=== PATIENT | male | born 1930 | race Caucasian/White ===

== ENCOUNTER 2018-05-17 07:38 | Emergency (ER) | payer MEDICARE, BC ==
[2018-05-17 13:22] LABS: Anisocytosis Slight; HCT 43.1 % (39.0-53.0); MCH 32.3 pg (25.0-35.0); MCHC 32.5 g/dL (31.0-37.0); MCV 99.4 fL (80.0-100.0); Macrocytosis Moderate; Mean Platelet Volume 10.2; RBC 4.34 m/uL (4.30-5.90); RDW 19.9 % (11.5-15.5); WBC 7.2 k/uL (3.8-10.6)
[2018-05-17 13:25] LABS: Platelet Count 88 k/uL (150-450)
[2018-05-17 13:27] LABS: Large Platelets Present; Lymphocytes # (M) 0.65 k/uL (1.0-4.8); Monocytes # (M) 2.74 k/uL (0-1.0); Neutrophils # (M) 3.82 k/uL (1.3-7.7); Neutrophils % (M) 53 %; Nucleated Red Blood Cells 0 /100 WBC (0-0); Poikilocytosis (M) Present; Spherocytes Present; Total Cells Counted 100
[2018-05-17 13:30] LABS: INR 1.6 (<1.2); Prothrombin Time 14.6 sec (9.0-12.0)
== END 2018-05-17 10:01 | disposition home or self-care (01) ==
LOC: EC 07:38
DX: I10 Essential (primary) hypertension (principal); R04.0 Epistaxis; Z88.5 Allergy status to narcotic agent
CPT/HCPCS: 36415; 85025; 85610; 85730; 96374; 96375; 99284

== ENCOUNTER → 2019-04-05 | Outpatient (CLI) | payer MEDICARE, BC ==
[2019-04-05 14:37] LABS: INR 1.3 (<1.2); Prothrombin Time 13.7 sec (9.0-12.0)
== END | disposition home or self-care (01) ==
LOC: LABWHC1 13:34
PROVIDERS: ATTEND Dentist Oral and Maxillofacial Surgery
DX: D68.9 Coagulation defect, unspecified (principal)
CPT/HCPCS: 36415; 85610

== ENCOUNTER → 2019-04-06 | Outpatient (CLI) | payer MEDICARE, BC ==
[2019-04-06 07:15] LABS: INR 1.3 (<1.2); Prothrombin Time 13.1 sec (9.0-12.0)
== END | disposition home or self-care (01) ==
LOC: LABWHC1 06:41
PROVIDERS: ATTEND Dentist Oral and Maxillofacial Surgery
DX: Z51.81 Encounter for therapeutic drug level monitoring (principal); Z79.01 Long term (current) use of anticoagulants
CPT/HCPCS: 36415; 85610

== ENCOUNTER 2019-06-03 09:11 | Emergency (ER) | payer MEDICARE, BC ==
[2019-06-03 09:27] VITALS: RESP 18; TEMP 97.9
[2019-06-03] MEDS ORDERED: ACET/COD 300 MG/30 MG STARTER PACK 6 TAB BTL PO STA (09:31)
--- NOTE | 2019-06-03 09:31 | ED ---
General Adult HPI - General Stated complaint: jaw pain Time Seen by Provider: 06/03/19 09:19 Source: patient, RN notes reviewed Mode of arrival: wheelchair Limitations: physical limitation - History of Present Illness Initial comments: This an 89-year-old male presents emergency Department chief complaint of right upper dental pain. Patient states that he's had this for last 2 mornings it did improve yesterday. Patient states that a cough for about 6 AM with sharp stabbing pain underneath his right upper molar. Patient states that it comes and goes. Patient was given 15 mg of Toradol by EMS which has helped his discomfort. Patient has no complaints of headache, dizziness, neck pain, chest pain, shortness breath. Patient does take medications for A. fib blood press ure. Patient denies any abnormal bleeding denies any fevers or chills. Patient also has noticed some rash on his face. - Related Data Home Medications Medication Instructions Recorded Confirmed Dorzolamide 2% [Trusopt 2%] 1 drops BOTH EYES BID 11/13/17 11/13/17 Warfarin [Coumadin] 2.5 mg PO DAILY 11/13/17 11/13/17 predniSONE 7.5 mg PO DAILY 11/13/17 11/13/17 Previous Rx's Medication Instructions Recorded Penicillin V Potassium [Pen Vee K] 500 mg PO QID #40 tablet 06/03/19 valACYclovir HCL [Valtrex] 1,000 mg PO Q8HR #30 tab 06/03/19 Allergies Allergy/AdvReac Type Severity Reaction Status Date / Time meperidine HCl [From Demerol] AdvReac Unknown Verified 06/03/19 09:27 Review of Systems ROS Statement: Those systems with pertinent positive or pertinent negative responses have been documented in the HPI. ROS Other: All systems not noted in ROS Statement are negative. Past Medical History Past Medical History: Atrial Fibrillation History of Any Multi-Drug Resistant Organisms: None Reported Past Surgical History: Back Surgery, Tonsillectomy Additional Past Surgical History / Comment(s): thymus removed Past Psychological History: No Psychological Hx Reported Smoking Status: Never smoker Past Alcohol Use History: None Reported Past Drug Use History: None Reported General Exam Limitations: physical limitation General appearance: alert, in no apparent distress Head exam: Present: atraumatic, normocephalic, normal inspection Eye exam: Present: normal appearance, PERRL, EOMI. Absent: scleral icterus, conjunctival injection, periorbital swelling ENT exam: Present: mucous membranes moist, TM's normal bilaterally. Absent: normal exam, normal oropharynx (There are noted canker sores in the right upper gumline, swelling of the upper dentition with tenderness, and mild superficial tenderness the right maxillary right TMJ region with vesicular rash noted) Neck exam: Present: normal inspection, full ROM. Absent: tenderness, meningismus, lymphadenopathy Respiratory exam: Present: normal lung sounds bilaterally. Absent: respiratory distress, wheezes, rales, rhonchi, stridor Cardiovascular Exam: Present: irregular rhythm, normal heart sounds. Absent: regular rate, normal rhythm, systolic murmur, diastolic murmur, rubs, gallop, clicks Neurological exam: Present: alert, oriented X3, CN II-XII intact Skin exam: Present: warm, dry, rash (Erythematous vesicular rash right cheek) Course Vital Signs 06/03/19 06/03/19 09:21 09:56 Temperature 97.9 F Pulse Rate 90 83 Respiratory 18 18 Rate Blood Pressure 189/100 176/87 O2 Sat by Pulse 97 97 Oximetry Medical Decision Making - Medical Decision Making 89-year-old male present emergency department for right upper dental pain, facial rash. This is underlying concerns for dental infection with herpes zoster. Patient will be given Valtrex, Pen-Vee K to go home with. Patient will follow-up with dentist and PCP tomorrow and return for any worsening symptoms. Patient is neurologically intact afebrile vitals are stable. Disposition Clinical Impression: Toothache, Herpes zoster Disposition: HOME SELF-CARE Condition: Stable Instructions (If sedation given, give patient instructions): Toothache (ED) Additional Instructions: Please return to the Emergency Department if symptoms worsen or any other concerns. Prescriptions: Penicillin V Potassium [Pen Vee K] 500 mg PO QID #40 tablet valACYclovir HCL [Valtrex] 1,000 mg PO Q8HR #30 tab Is patient prescribed a controlled substance at d/c from ED?: No Referrals: Corrina Castro DO [Primary Care Provider] - 1-2 days Time of Disposition: 10:25
[2019-06-03] MEDS ORDERED: valACYclovir HCL 1,000 MG TABLET PO STA (09:32)
[2019-06-03] MEDS ORDERED: PENICILLIN V POTASSIUM 250 MG TAB PO STA (09:32)
[2019-06-03 10:59] VITALS: BP 142/63; PULSE 82
== END 2019-06-03 10:57 | disposition home or self-care (01) ==
LOC: EC 09:11
DX: K08.89 Other specified disorders of teeth and supporting structures (principal); B02.9 Zoster without complications; I48.91 Unspecified atrial fibrillation; Z79.51 Long term (current) use of inhaled steroids; Z79.01 Long term (current) use of anticoagulants; Z79.899 Other long term (current) drug therapy; Z88.5 Allergy status to narcotic agent
CPT/HCPCS: 99284

== ENCOUNTER 2019-06-19 17:32 | Inpatient (IN) | payer MEDICARE, BC ==
--- NOTE | 2019-06-19 18:50 | ED ---
Extremity Problem HPI - General Source: patient, EMS Mode of arrival: EMS Limitations: no limitations <Lanette Luna - Last Filed: 06/20/19 02:02> <Matt Ramsay - Last Filed: 06/23/19 06:42> - General Chief complaint: Extremity Problem,Nontraumatic Stated complaint: Leg swelling Time Seen by Provider: 06/19/19 18:19 - History of Present Illness Initial comments: 89-year-old male patient presents to the emergency department today for evaluation of swelling and redness of the left lower leg. Patient states he is getting physical therapy today when the therapist noticed this area. She was concerned for infection so told him he should present to the emergency department for further evaluation. Patient states the area is painful. He denies any fever or chills. Denies any history of similar type symptoms. He denies any injury to the leg. 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 States he is receiving physical therapy due to medical debility. Patient denies any recent rash, shortness breath, chest pain, palpitations, abdominal pain, nausea, vomiting, diarrhea, constipation, back pain, numbness, tingling, dizziness, weakness, hematuria, dysuria, urinary ur gency, urinary frequency, headache, visual changes, or any other complaints. (Lanette Luna) - Related Data Home Medications Medication Instructions Recorded Confirmed predniSONE 5 mg PO DAILY 11/13/17 06/19/19 Amoxicillin/Potassium Clav 1 tab PO Q12HR 06/19/19 06/19/19 [Augmentin 875-125 Tablet] Dorzolamide 2% [Trusopt 2%] 1 drops BOTH EYES BID 06/19/19 06/19/19 Netarsudil Mesylate [Rhopressa] 1 drop LEFT EYE HS 06/19/19 06/19/19 Warfarin Sodium 5 mg PO DAILY 06/19/19 06/19/19 Previous Rx's Medication Instructions Recorded Cephalexin [Keflex] 500 mg PO Q8HR #30 cap 06/22/19 Allergies Allergy/AdvReac Type Severity Reaction Status Date / Time meperidine HCl [From Demerol] AdvReac Unknown Verified 06/19/19 18:02 Review of Systems ROS Other: All systems not noted in ROS Statement are negative. <Lanette Luna - Last Filed: 06/20/19 02:02> ROS Other: All systems not noted in ROS Statement are negative. <Matt Ramsay - Last Filed: 06/23/19 06:42> ROS Statement: Those systems with pertinent positive or pertinent negative responses have been documented in the HPI. Past Medical History Past Medical History: Atrial Fibrillation History of Any Multi-Drug Resistant Organisms: None Reported Past Surgical History: Back Surgery, Tonsillectomy Additional Past Surgical History / Comment(s): thymus removed Past Psychological History: No Psychological Hx Reported Smoking Status: Never smoker Past Alcohol Use History: None Reported Past Drug Use History: None Reported <Lanette Luna - Last Filed: 06/20/19 02:02> General Exam Limitations: no limitations General appearance: alert, in no apparent distress, other (This is a well- developed, well-nourished elderly male patient in no acute distress. Vital sig ns upon presentation are temperature 98.7F, pulse 88, respirations 16, blood pressure 174/76, pulse ox 98% on room air.) Eye exam: Present: normal appearance, PERRL, EOMI. Absent: scleral icterus, conjunctival injection, periorbital swelling ENT exam: Present: normal exam, normal oropharynx, mucous membranes moist Respiratory exam: Present: normal lung sounds bilaterally. Absent: respiratory distress, wheezes, rales, rhonchi, stridor Cardiovascular Exam: Present: regular rate, normal rhythm, normal heart sounds. Absent: systolic murmur, diastolic murmur, rubs, gallop, clicks GI/Abdominal exam: Present: soft, normal bowel sounds. Absent: distended, tenderness, guarding, rebound, rigid Extremities exam: Present: full ROM, tenderness (Tenderness and erythema over the right anterolateral medial lower leg overlying some large varicose veins. There is general soft tissue swelling over the lower leg. Skin is otherwise pink, warm, dry. Cap refills less than 3 seconds. Pedal and posttibial pulses are 2+ and equal bilaterally.), normal capillary refill. Absent: normal inspection, pedal edema, joint swelling, calf tenderness Neurological exam: Present: alert, oriented X3, CN II-XII intact Psychiatric exam: Present: normal affect, normal mood Skin exam: Present: warm, dry, intact, normal color. Absent: rash <Lanette Luna - Last Filed: 06/20/19 02:02> Course Vital Signs 06/19/19 06/19/19 06/19/19 17:36 19:32 23:39 Temperature 98.7 F 98.5 F Pulse Rate 88 80 70 Respiratory 16 18 18 Rate Blood Pressure 174/76 136/76 161/83 O2 Sat by Pulse 98 97 98 Oximetry 06/20/19 01:54 Temperature 98.3 F Pulse Rate 78 Respiratory 18 Rate Blood Pressure 160/80 O2 Sat by Pulse 98 Oximetry Medical Decision Making - Lab Data Result diagrams: 06/19/19 19:11 06/19/19 19:11 - Radiology Data Radiology results: report reviewed, image reviewed <Lanette Luna - Last Filed: 06/20/19 02:02> - Lab Data Result diagrams: 06/22/19 08:29 06/22/19 08:29 <Matt Ramsay - Last Filed: 06/23/19 06:42> - Medical Decision Making 89-year-old male patient of Dr. Castro presents to the emergency department today for evaluation of erythema, swelling and pain to the left lower leg. Physical examination did reveal large varicose veins over the left anteromedial lower leg. There is overlying erythema and swelling that extended down into the calf. Labs reviewed and did reveal elevated white blood cell count at 16,000. I did perform ultrasound of the leg that showed evidence of superficial thrombosis of the left greater saphenous vein. Patient is taking Augmentin for dental infection. There is concern for cellulitis which would be failed outpatient treatment since he has been on the Augmentin. We'll also do Lovenox for the thrombus due to proximity to the deep venous system. I did discuss findings and results with the patient. He agrees with this plan. (Lanette Luna) I saw this patient in conjunction with the physician assistant education director. I performed independent history and physical exam. Agree with case management. (Matt Ramsay) - Lab Data Lab Results 06/19/19 06/19/19 06/19/19 Range/Units 19:11 19:11 19:11 WBC 16.7 H (3.8-10.6) k/uL RBC 4.15 L (4.30-5.90) m/uL Hgb 13.2 (13.0-17.5) gm/dL Hct 41.2 (39.0-53.0) % MCV 99.3 (80.0-100.0) fL MCH 31.7 (25.0-35.0) pg MCHC 32.0 (31.0-37.0) g/dL RDW 20.0 H (11.5-15.5) % Plt Count 124 L (150-450) k/uL Neutrophils % (Manual) 70 % Lymphocytes % (Manual) 4 % Monocytes % (Manual) 26 % Neutrophils # (Manual) 11.69 H (1.3-7.7) k/uL Lymphocytes # (Manual) 0.67 L (1.0-4.8) k/uL Monocytes # (Manual) 4.34 H (0-1.0) k/uL Nucleated RBCs 0 (0-0) /100 WBC Manual Slide Review Performed Anisocytosis Slight Macrocytosis Moderate PT (9.0-12.0) sec INR (<1.2) APTT (22.0-30.0) sec Sodium 134 L (137-145) mmol/L Potassium 4.0 (3.5-5.1) mmol/L Chloride 101 (98-107) mmol/L Carbon Dioxide 25 (22-30) mmol/L Anion Gap 8 mmol/L BUN 21 H (9-20) mg/dL Creatinine 0.52 L (0.66-1.25) mg/dL Est GFR (CKD-EPI)AfAm >90 (>60 ml/min/1.73 sqM) Est GFR (CKD-EPI)NonAf >90 (>60 ml/min/1.73 sqM) Glucose 117 H (74-99) mg/dL Plasma Lactic Acid Daron 1.3 (0.7-2.0) mmol/L Calcium 8.5 (8.4-10.2) mg/dL Total Bilirubin 0.7 (0.2-1.3) mg/dL AST 32 (17-59) U/L ALT 24 (21-72) U/L Alkaline Phosphatase 97 (38-126) U/L Total Protein 6.7 (6.3-8.2) g/dL Albumin 3.4 L (3.5-5.0) g/dL 06/20/19 Range/Units 01:42 WBC (3.8-10.6) k/uL RBC (4.30-5.90) m/uL Hgb (13.0-17.5) gm/dL Hct (39.0-53.0) % MCV (80.0-100.0) fL MCH (25.0-35.0) pg MCHC (31.0-37.0) g/dL RDW (11.5-15.5) % Plt Count (150-450) k/uL Neutrophils % (Manual) % Lymphocytes % (Manual) % Monocytes % (Manual) % Neutrophils # (Manual) (1.3-7.7) k/uL Lymphocytes # (Manual) (1.0-4.8) k/uL Monocytes # (Manual) (0-1.0) k/uL Nucleated RBCs (0-0) /100 WBC Manual Slide Review Anisocytosis Macrocytosis PT 12.7 H (9.0-12.0) sec INR 1.2 H (<1.2) APTT 23.3 (22.0-30.0) sec Sodium (137-145) mmol/L Potassium (3.5-5.1) mmol/L Chloride (98-107) mmol/L Carbon Dioxide (22-30) mmol/L Anion Gap mmol/L BUN (9-20) mg/dL Creatinine (0.66-1.25) mg/dL Est GFR (CKD-EPI)AfAm (>60 ml/min/1.73 sqM) Est GFR (CKD-EPI)NonAf (>60 ml/min/1.73 sqM) Glucose (74-99) mg/dL Plasma Lactic Acid Daron (0.7-2.0) mmol/L Calcium (8.4-10.2) mg/dL Total Bilirubin (0.2-1.3) mg/dL AST (17-59) U/L ALT (21-72) U/L Alkaline Phosphatase (38-126) U/L Total Protein (6.3-8.2) g/dL Albumin (3.5-5.0) g/dL - Radiology Data Venous Doppler duplex of the left lower external he was obtained. Report was reviewed in its entirety. Impression by Dr. Medel shows evidence of superficial thrombosis of the greater saphenous vein. Noted evidence of deep venous tendinosis in the visualized lower extremity veins. Ultrasound of the left lower trauma he was obtained. Report was reviewed in its entirety. Impression by Dr. Medel shows limited images in the area of concern in the left lower leg demonstrate heterogenous hypoechoic structures are some areas of minimal vascularly. Differential considerations includes thrombosed vessels with mass not excluded. (Lanette Luna) Disposition Decision to Admit Reason: Admit from EC Decision Date: 06/20/19 Decision Time: 00:53 <Lanette Luna - Last Filed: 06/20/19 02:02> <Matt Ramsay - Last Filed: 06/23/19 06:42> Clinical Impression: Left leg cellulitis, Superficial thrombosis of left lower extremity Disposition: ADMITTED IP TO THIS [facility] Condition: Serious
[2019-06-19 19:37] LABS: ALT 24 U/L (21-72); AST 32 U/L (17-59); African American GFR (CKD) >90 (>60 ml/min/1.73 sqM); Albumin 3.4 g/dL (3.5-5.0); Alkaline Phosphatase 97 U/L (38-126); Anion Gap 8 mmol/L; Blood Urea Nitrogen 21 mg/dL (9-20); Calcium 8.5 mg/dL (8.4-10.2); Carbon Dioxide 25 mmol/L (22-30); Chloride 101 mmol/L (98-107); Glucose 117 mg/dL (74-99); Sodium 134 mmol/L (137-145); Total Bilirubin 0.7 mg/dL (0.2-1.3); Total Protein 6.7 g/dL (6.3-8.2)
[2019-06-19 19:48] LABS: Anisocytosis Slight; HCT 41.2 % (39.0-53.0); HGB 13.2 gm/dL (13.0-17.5); MCH 31.7 pg (25.0-35.0); MCV 99.3 fL (80.0-100.0); Macrocytosis Moderate; Platelet Count 124 k/uL (150-450); RBC 4.15 m/uL (4.30-5.90); WBC 16.7 k/uL (3.8-10.6)
[2019-06-19 20:17] LABS: Lymphocytes # (M) 0.67 k/uL (1.0-4.8); Monocytes # (M) 4.34 k/uL (0-1.0); Neutrophils % (M) 70 %; Nucleated Red Blood Cells 0 /100 WBC (0-0); Total Cells Counted 100
--- NOTE | 2019-06-19 22:54 | US ---
EXAM: US Duplex Left Lower Extremity Veins CLINICAL HISTORY: ITS.REASON US Reason: Pain TECHNIQUE: Real-time duplex ultrasound scan of the left lower extremity veins integrating B-mode two-dimensional vascular structure, Doppler spectral analysis, color flow Doppler imaging and compression. COMPARISON: No relevant prior studies available. FINDINGS: Deep veins: No DVT in the visualized left lower extremity veins. Superficial veins: There is evidence of superficial thrombosis in the greater saphenous vein. Soft tissues: No acute findings. IMPRESSION: 1. There is evidence of superficial thrombosis in the greater saphenous vein. 2. No evidence of deep venous thrombosis in the visualized lower extremity veins. <MYCVCSECTION> Critical Value Communications 06/19/19 23:12 Verify Receipt Verified receipt with SALOMÓN BRITO in the ER for Dr. SWANSON on 06/19 23:12 (-04:00)
--- NOTE | 2019-06-19 23:13 | US ---
EXAM: US Left Lower Extremity CLINICAL HISTORY: ITS.REASON US Reason: Redness, swelling TECHNIQUE: Real-time ultrasound scan of the left lower extremity with image documentation. COMPARISON: No relevant prior studies available. FINDINGS: Limited images in the area of concern in the left lower leg demonstrate heterogeneous hypoechoic structures with some areas of minimal vascularity. IMPRESSION: Limited images in the area of concern in the left lower leg demonstrate heterogeneous hypoechoic structures with some areas of minimal vascularity. Differential considerations include thrombosed vessels with mass not excluded.
[2019-06-20] MEDS ORDERED: NALOXONE 0.4 MG/ML 1 ML VIAL IV PRN (00:49)
[2019-06-20] MEDS ORDERED: CLINDAMYCIN 600 MG in DEXTROSE 5% IN WATER 50 ML IVPB STA ×2 (00:49)
[2019-06-20] MEDS ORDERED: ENOXAPARIN 60 MG/0.6 ML SYRINGE SQ STA (00:52)
[2019-06-20 01:59] LABS: INR 1.2 (<1.2); Partial Thromboplastin Time 23.3 sec (22.0-30.0); Prothrombin Time 12.7 sec (9.0-12.0)
[2019-06-20] MEDS: CLINDAMYCIN 600 MG in DEXTROSE 5% IN WATER 50 ML IVPB SCH ×4 (09:01→16:28)
[2019-06-20] MEDS: DORZOLAMIDE HCL 2% DROPS 10 ML BTL BOTH EYES SCH ×2 (09:01→20:26)
--- NOTE | 2019-06-20 13:47 | P.HPIM ---
History of Present Illness H&P Date: 06/20/19 Chief Complaint: Leg pain Juan Miguel Rushing is an 89 yo M with PMH significant for atrial fibrillation on coumadin, glaucoma, osteopenia, deconditioning. He was seen yesterday by home visiting PT and complained at that time of superficial nodular swelling and tenderness along his LLE. He was then recommended to present to the ED. He has a history of superficial phlebitis and has required antibiotic treatment for this in the past. He states the bumps on his legs enlarged and began hurting over the past two days. He denies any fevers, chills, chest pain, cough, or redness exte nding up his leg. He denies any open sores or drainage. Pt states he has remained compliant with his coumadin. He has no known history of vascular disease and is a nonsmoker. In the ED, vitals stable, WBC 16.7, venous ultrasound with superficial thrombosis of L saphenous vein. Superficial ultrasound of leg nodules showed them to be hypoechoic with minimal vascularity. Review of Systems All systems: negative Constitutional: Reports malaise, Denies chills, Denies fever Eyes: denies blurred vision, denies pain Ears, nose, mouth and throat: Denies headache, Denies sore throat Cardiovascular: Denies chest pain, Denies shortness of breath Respiratory: Denies cough Gastrointestinal: Denies abdominal pain, Denies diarrhea, Denies nausea, Denies vomiting Musculoskeletal: Reports as per HPI, Reports gait dysfunction, Denies myalgias Integumentary: Denies pruritus, Denies rash Neurological: Denies numbness, Denies weakness Psychiatric: Denies anxiety, Denies depression Endocrine: Denies fatigue, Denies weight change Past Medical History Past Medical History: Atrial Fibrillation Additional Past Medical History / Comment(s): Glaucoma History of Any Multi-Drug Resistant Organisms: None Reported Past Surgical History: Back Surgery, Tonsillectomy Additional Past Surgical History / Comment(s): thymus removed Past Anesthesia/Blood Transfusion Reactions: No Reported Reaction Past Psychological History: No Psychological Hx Reported Smoking Status: Never smoker Past Alcohol Use History: None Reported Past Drug Use History: None Reported - Past Family History Father Family Medical History: No Reported History Mother Family Medical History: No Reported History Medications and Allergies Home Medications Medication Instructions Recorded Confirmed Type RX: predniSONE 5 mg PO DAILY 11/13/17 06/19/19 History Amoxicillin/Potassium Clav 1 tab PO Q12HR 06/19/19 06/19/19 History [Augmentin 875-125 Tablet] Dorzolamide 2% [Trusopt 2%] 1 drops BOTH EYES BID 06/19/19 06/19/19 History Netarsudil Mesylate [Rhopressa] 1 drop LEFT EYE HS 06/19/19 06/19/19 History RX: Warfarin Sodium 5 mg PO DAILY 06/19/19 06/19/19 History Allergies Allergy/AdvReac Type Severity Reaction Status Date / Time meperidine HCl [From Demerol] AdvReac Unknown Verified 06/19/19 18:02 Physical Exam Vitals: Vital Signs Temp Pulse Pulse Resp BP BP Pulse Ox 06/20/19 04:30 98.3 F 80 20 133/70 98 06/20/19 04:00 80 06/20/19 02:45 98.1 F 76 20 152/76 98 06/20/19 01:54 98.3 F 78 18 160/80 98 06/19/19 23:39 98.5 F 70 18 161/83 98 06/19/19 19:32 80 18 136/76 97 06/19/19 17:36 98.7 F 88 16 174/76 98 Intake and Output 06/19/19 06/20/19 06/20/19 22:59 06:59 14:59 Intake Total 200 240 Output Total 1 Balance 199 240 Intake: Oral 200 240 Output: Stool 1 Other: # Voids 3 Weight 65.771 kg 60.101 kg Constitutional: well developed, well nourished, NAD. Vitals reviewed HEENT: normocephalic. TMs clear. PERRLA. Mucus membranes moist Neck: supple, no thyromegaly or JVD CV: Irregularly irregular, systolic murmur. Pulses 1+ Lungs: normal inspiratory effort, clear throughout Abd: soft, nontender, no organomegaly Lymph: no cervical or inguinal LAD Ext: LLE with 5 discreet, 1-2 cm diameter superficial tender nodules. There is minimal erythema around these. Distal bilateral LE with extensive hemosiderin deposition Neuro: AAO x3 Results CBC & Chem 7: 06/19/19 19:11 06/19/19 19:11 Labs: Abnormal Lab Results - Last 24 Hours (Table) 06/19/19 06/19/19 06/20/19 Range/Units 19:11 19:11 01:42 WBC 16.7 H (3.8-10.6) k/uL RBC 4.15 L (4.30-5.90) m/uL RDW 20.0 H (11.5-15.5) % Plt Count 124 L (150-450) k/uL Neutrophils # (Manual) 11.69 H (1.3-7.7) k/uL Lymphocytes # (Manual) 0.67 L (1.0-4.8) k/uL Monocytes # (Manual) 4.34 H (0-1.0) k/uL PT 12.7 H (9.0-12.0) sec INR 1.2 H (<1.2) Sodium 134 L (137-145) mmol/L BUN 21 H (9-20) mg/dL Creatinine 0.52 L (0.66-1.25) mg/dL Glucose 117 H (74-99) mg/dL Albumin 3.4 L (3.5-5.0) g/dL Thrombosis Risk Factor Assmnt - Choose All That Apply Other Risk Factors: Yes Each Risk Factor Represents 3 Points: Age 75 years or older Thrombosis Risk Factor Assessment Total Risk Factor Score: 3 Thrombosis Risk Factor Assessment Level: Moderate Risk Assessment and Plan (1) Phlebitis Current Visit: Yes Status: Acute Code(s): I80.9 - PHLEBITIS AND THROMBOPHLEBITIS OF UNSPECIFIED SITE SNOMED Code(s): 35740544 (2) Left leg cellulitis Current Visit: Yes Status: Acute Code(s): L03.116 - CELLULITIS OF LEFT LOWER LIMB SNOMED Code(s): 423884922 (3) Superficial thrombosis of left lower extremity Current Visit: Yes Status: Acute Code(s): I82.812 - EMBOLISM AND THROMBOSIS OF SUPERFICIAL VEINS OF L LOW EXTREM SNOMED Code(s): 815277324 (4) Atrial fibrillation Current Visit: Yes Status: Acute Code(s): I48.91 - UNSPECIFIED ATRIAL FIBRILLATION SNOMED Code(s): 51363772 Plan: 1. LLE phlebitis/cellulitis. With leukocytosis. Hx of same. Likely precipitated by clot. Start clindamycin. ID consult placed for antibiotic recommendation 2. Superficial venous thrombosis. Visualized on US. Pt remains anticoagulated on coumadin. Maintain INR 2-3 3. A fib. Rate controlled and on coumadin 4. Glaucoma. Continue home medications
[2019-06-20 14:55] VITALS: BMI 19.0
--- NOTE | 2019-06-20 17:51 | P.CONS ---
History of Present Illness - Reason for Consult Consult date: 06/20/19 - Chief Complaint left leg pain - History of Present Illness Pleasant 89-year-old gentleman who has a history of dementia who resides in assisted living facility has many medical troubles that include atrial fibrillation chronically anticoagulated with Coumadin, progressive weakness and difficulties with glaucoma. 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 The patient relates that he has developed the onset of significant pain and swel ling to the left leg in the medial aspect of the calf. Is known history of varicose veins and does not recall any specific trauma but has noticed the onset of swelling erythema and distinct tenderness in the left leg. Despite some outpatient treatment he did not improve and consequently was brought in hospital for treatment of the significant cellulitis of this region. The patient does not believe he has a history of deep venous thrombosis but does have the extensive varicose veins. He does not believe he has any surgery on his veins. He denies significant fever chills or rigors. Denies other acute symptoms at this time. Review of Systems HEENT:Denies headache or acute visual change. Denies sinus or mouth discomforts. Denies neck stiffness or pain. Denies significant oral cavity pain. Denies difficulty on swallowing. Lungs: Denies significant shortness of breath, cough, sputum production, or hemoptysis. Cardiovascular: Denies significant shortness of breath, chest pain, chest wall pain, orthopnea, dyspnea on exertion, syncope Gastrointestinal:Denies nausea, vomiting, diarrhea, constipation, hematemesis, melena, hematochezia. No no significant change of bowel habit noticed. Musculoskeletal: denies significant myalgias or arthralgias. No new joint swelling. Denies new back pain. Skin: pain swelling or redness to the left leg on the calf, has chronic skin discoloration to his bilateral lower extremities Neuro: Denies headache or visual change. has generalized weakness but denies acute changes of his ambulation Denies falls or seizures. Psychiatric:Denies anxiety or depression. Endocrine: does have fatigue weight has been stable to slightly decreased Past Medical History Past Medical History: Atrial Fibrillation Additional Past Medical History / Comment(s): Glaucoma History of Any Multi-Drug Resistant Organisms: None Reported Past Surgical History: Back Surgery, Tonsillectomy Additional Past Surgical History / Comment(s): thymus removed Past Anesthesia/Blood Transfusion Reactions: No Reported Reaction Past Psychological History: No Psychological Hx Reported Additional Psychological History / Comment(s): Single and never . Was in the [employer]. 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 No children. Lives in an assisted living facility. No recent international tr tiffani. No animal exposures. Lifelong nonsmoker. No alcohol or recreational drug use Smoking Status: Never smoker Past Alcohol Use History: None Reported Past Drug Use History: None Reported - Past Family History Father Family Medical History: No Reported History Mother Family Medical History: No Reported History Medications and Allergies Home Medications and Allergies Comment(s): Current Medications Dorzolamide HCl (Trusopt) 1 drops BOTH EYES BID [facility] Last Admin: 06/20/19 09:01 Dose: 1 drops Documented by: Clindamycin Phosphate 600 mg/ (Dextrose/Water) 54 mls @ 50 mls/hr IVPB Q8H [facility] Last Admin: 06/20/19 16:28 Dose: Not Given Documented by: Cefazolin Sodium 2 gm/ Sodium (Chloride) 50 mls @ 100 mls/hr IVPB Q8HR [facility] Last Admin: 06/20/19 17:37 Dose: 100 mls/hr Documented by: Miscellaneous Information (Coumadin Per Pharmacy) 1 each MISCELLANE DIRECTED PRN PRN Reason: Per Protocol Naloxone HCl (Narcan) 0.2 mg IV Q2M PRN PRN Reason: Opioid Reversal Silver Sulfadiazine (Silvadene Cream) 1 applic TOPICAL BID [facility] Warfarin Sodium (Coumadin) 5 mg PO ONCE ONE Stop: 06/20/19 18:01 Last Admin: 06/20/19 17:37 Dose: 5 mg Documented by: Home Medications Medication Instructions Recorded Confirmed Type predniSONE 5 mg PO DAILY 11/13/17 06/19/19 History Amoxicillin/Potassium Clav 1 tab PO Q12HR 06/19/19 06/19/19 History [Augmentin 875-125 Tablet] Dorzolamide 2% [Trusopt 2%] 1 drops BOTH EYES BID 06/19/19 06/19/19 History Netarsudil Mesylate [Rhopressa] 1 drop LEFT EYE HS 06/19/19 06/19/19 History Warfarin Sodium 5 mg PO DAILY 06/19/19 06/19/19 History Allergies Allergy/AdvReac Type Severity Reaction Status Date / Time meperidine HCl [From Demerol] AdvReac Unknown Verified 06/19/19 18:02 Physical Exam Vitals: Vital Signs Temp Pulse Pulse Resp BP BP BP 06/20/19 13:47 98.5 F 71 18 145/57 06/20/19 04:30 98.3 F 80 20 133/70 06/20/19 04:00 80 06/20/19 02:45 98.1 F 76 20 152/76 06/20/19 01:54 98.3 F 78 18 160/80 06/19/19 23:39 98.5 F 70 18 161/83 06/19/19 19:32 80 18 136/76 Pulse Ox 06/20/19 13:47 98 06/20/19 04:30 98 06/20/19 04:00 06/20/19 02:45 98 06/20/19 01:54 98 06/19/19 23:39 98 06/19/19 19:32 97 Intake and Output 06/20/19 06/20/19 06/20/19 06:59 14:59 22:59 Intake Total 200 480 Output Total 1 Balance 199 480 Intake: Oral 200 480 Output: Stool 1 Other: # Voids 3 2 # Bowel Movements 1 Weight 60.101 kg 60.101 kg HEENT: Anicteric conjunctiva are pink and moist nasal mucosa grossly intact without significant lesions, there is no thrush. Neck: The neck is supple without significant lymphadenopathy or thyromegaly. Lungs: Good bilateral air entry without significant crackles or wheezing. There is no significant bronchial sounds. There is no egophony or dullness. Heart: Regular rate and rhythm with an audible S1-S2, no S3 no S4. There is no significant murmur click or rub, PMI was nondisplaced. Abdomen: Positive bowel sounds soft and nontender without palpable masses or organomegaly. There was no guarding or rebound.The right lower amin shows evidence of some varicosities to lower extremity veins and he has the distinct discoloration to the lower extremity skin hemosiderin-like in nature. Left lower extremity shows similar findings with extensive varicose veins and skin discoloration however on the medial aspect of the inner aspect of the calf is evidence of the significant tenderness and erythema. There is evidence of tenderness and firmness to the obvious varicose veins that are present. There is no distinct ulceration. The erythema does not ascend above the knee. There is no inguinal lymphadenopathy or no other abnormal lymph nodes being seen. Extremities: The upper extremities have excellent pulses they are symmetric, no significant petechiae or telangiectasia. No splinter hemorrhages were noted. Neuro: Awake alert oriented to person however did not know place or time. He ho wever could follow simple commands without difficulties. Results CBC & Chem 7: 06/19/19 19:11 06/19/19 19:11 Labs: Abnormal Lab Results - Last 24 Hours (Table) 06/19/19 06/19/19 06/20/19 Range/Units 19:11 19:11 01:42 WBC 16.7 H (3.8-10.6) k/uL RBC 4.15 L (4.30-5.90) m/uL RDW 20.0 H (11.5-15.5) % Plt Count 124 L (150-450) k/uL Neutrophils # (Manual) 11.69 H (1.3-7.7) k/uL Lymphocytes # (Manual) 0.67 L (1.0-4.8) k/uL Monocytes # (Manual) 4.34 H (0-1.0) k/uL PT 12.7 H (9.0-12.0) sec INR 1.2 H (<1.2) Sodium 134 L (137-145) mmol/L BUN 21 H (9-20) mg/dL Creatinine 0.52 L (0.66-1.25) mg/dL Glucose 117 H (74-99) mg/dL Albumin 3.4 L (3.5-5.0) g/dL Laboratory Results WBC 16.7 k/uL (3.8-10.6) H 06/19/19 19:11 RBC 4.15 m/uL (4.30-5.90) L 06/19/19 19:11 Hgb 13.2 gm/dL (13.0-17.5) 06/19/19 19:11 Hct 41.2 % (39.0-53.0) 06/19/19 19:11 MCV 99.3 fL (80.0-100.0) 06/19/19 19:11 MCH 31.7 pg (25.0-35.0) 06/19/19 19:11 MCHC 32.0 g/dL (31.0-37.0) 06/19/19 19:11 RDW 20.0 % (11.5-15.5) H 06/19/19 19:11 Plt Count 124 k/uL (150-450) L 06/19/19 19:11 Neutrophils % (Manual) 70 % 06/19/19 19:11 Lymphocytes % (Manual) 4 % 06/19/19 19:11 Monocytes % (Manual) 26 % 06/19/19 19:11 Neutrophils # (Manual) 11.69 k/uL (1.3-7.7) H 06/19/19 19:11 Lymphocytes # (Manual) 0.67 k/uL (1.0-4.8) L 06/19/19 19:11 Monocytes # (Manual) 4.34 k/uL (0-1.0) H 06/19/19 19:11 Nucleated RBCs 0 /100 WBC (0-0) 06/19/19 19:11 Manual Slide Review Performed 06/19/19 19:11 Anisocytosis Slight 06/19/19 19:11 Macrocytosis Moderate 06/19/19 19:11 PT 12.7 sec (9.0-12.0) H 06/20/19 01:42 INR 1.2 (<1.2) H 06/20/19 01:42 APTT 23.3 sec (22.0-30.0) 06/20/19 01:42 Sodium 134 mmol/L (137-145) L 06/19/19 19:11 Potassium 4.0 mmol/L (3.5-5.1) 06/19/19 19:11 Chloride 101 mmol/L (98-107) 06/19/19 19:11 Carbon Dioxide 25 mmol/L (22-30) 06/19/19 19:11 Anion Gap 8 mmol/L 06/19/19 19:11 BUN 21 mg/dL (9-20) H 06/19/19 19:11 Creatinine 0.52 mg/dL (0.66-1.25) L 06/19/19 19:11 Est GFR (CKD-EPI)AfAm >90 (>60 ml/min/1.73 sqM) 06/19/19 19:11 Est GFR (CKD-EPI)NonAf >90 (>60 ml/min/1.73 sqM) 06/19/19 19:11 Glucose 117 mg/dL (74-99) H 06/19/19 19:11 Plasma Lactic Acid Daron 1.3 mmol/L (0.7-2.0) 06/19/19 19:11 Calcium 8.5 mg/dL (8.4-10.2) 06/19/19 19:11 Total Bilirubin 0.7 mg/dL (0.2-1.3) 06/19/19 19:11 AST 32 U/L (17-59) 06/19/19 19:11 ALT 24 U/L (21-72) 06/19/19 19:11 Alkaline Phosphatase 97 U/L (38-126) 06/19/19 19:11 Total Protein 6.7 g/dL (6.3-8.2) 06/19/19 19:11 Albumin 3.4 g/dL (3.5-5.0) L 06/19/19 19:11 Venous US: report reviewed (thrombosis of the superficialgreater saphenous vein, no deep venous thrombosis noted) Assessment and Plan (1) Left leg cellulitis Narrative/Plan: Pleasant 89-year-old male who presents to hospital with increasing pain and swelling and erythema to the medial aspect of the left calf. He has no trauma or any other acute changes he can recall. He overdoes evidence of extensive varicose veins relates is due to his time in the [employer] in his work at [employer]. There is evidence by ultrasound and physical exam of thrombosis of the superficial vein in that region on the calf. There is associated erythema and tenderness. He does not have an extensive ascending lymphangitis at this time. There is no inguinal lymphadenopathy. Antibiotic therapy descalated to Ancef at this time for the current difficulty. Local wound care with Silvadene and gent le wrap will be applied. He is ready anticoagulated with Coumadin is being monitored by the primary service. Elevation of the limb while he can tolerate it is helpful. Current Visit: Yes Status: Acute Code(s): L03.116 - CELLULITIS OF LEFT LOWER LIMB SNOMED Code(s): 231269032 (2) Superficial thrombosis of left lower extremity Current Visit: Yes Status: Acute Code(s): I82.812 - EMBOLISM AND THROMBOSIS OF SUPERFICIAL VEINS OF L LOW EXTREM SNOMED Code(s): 499333286 (3) Dementia Current Visit: Yes Status: Acute Code(s): F03.90 - UNSPECIFIED DEMENTIA WITHOUT BEHAVIORAL DISTURBANCE SNOMED Code(s): 80281842
[2019-06-20] MEDS ORDERED: WARFARIN 5 MG TAB PO ONE (18:00)
[2019-06-21] MEDS: CLINDAMYCIN 600 MG in DEXTROSE 5% IN WATER 50 ML IVPB SCH ×6 (03:05→17:18)
[2019-06-21] MEDS: DORZOLAMIDE HCL 2% DROPS 10 ML BTL BOTH EYES SCH ×2 (08:27→20:43)
[2019-06-21 09:21] LABS: Anisocytosis Slight; HCT 43.7 % (39.0-53.0); HGB 13.6 gm/dL (13.0-17.5); Hypochromasia Slight; MCH 31.3 pg (25.0-35.0); MCHC 31.1 g/dL (31.0-37.0); MCV 100.5 fL (80.0-100.0); Macrocytosis Moderate; Mean Platelet Volume 10.2; Platelet Count 140 k/uL (150-450); RBC 4.35 m/uL (4.30-5.90); RDW 19.3 % (11.5-15.5); WBC 14.2 k/uL (3.8-10.6)
[2019-06-21 09:23] LABS: INR 1.3 (<1.2); Prothrombin Time 13.2 sec (9.0-12.0)
[2019-06-21 12:03] LABS: Lymphocytes # (M) 1.14 k/uL (1.0-4.8); Neutrophils % (M) 61 %; Nucleated Red Blood Cells 0 /100 WBC (0-0); Total Cells Counted 100
[2019-06-21 12:05] LABS: Poikilocytosis (M) Present
--- NOTE | 2019-06-21 13:00 | P.PN ---
Subjective Progress Note Date: 06/21/19 Juan Miguel Rushing is an 89 yo M with PMH significant for atrial fibrillation on coumadin, glaucoma, osteopenia, deconditioning. He was seen yesterday by home visiting PT and complained at that time of superficial nodular swelling and tenderness along his LLE. He was then recommended to present to the ED. He has a history of superficial phlebitis and has required antibiotic treatment for this in the past. He states the bumps on his legs enlarged and began hurting over the past two days. He denies any fevers, chills, chest pain, cough, or redness extending up his leg. He denies any open sores or drainage. Pt states he has remained compliant with his coumadin. He has no known history of vascular disease and is a nonsmoker. In the ED, vitals stable, WBC 16.7, venous ultrasound with superficial thrombosis of L saphenous vein. Superficial ultrasound of leg nodules showed them to be hypoechoic with minimal vascularity. 06/21/2019 Continues to do well with current treatment. Antibiotics adjusted, on Keflex with Silvadene for wound care as recommended per infectious disease. Afebrile, preliminary blood cultures negative. Reports Left lower extremity edema, tenderness improving. Labs pending. Objective - Vital Signs Vital signs: Vital Signs Temp 98.3 F 06/21/19 05:40 Pulse 72 06/21/19 05:40 Resp 18 06/21/19 05:40 BP 155/88 06/21/19 05:40 Pulse Ox 97 06/21/19 05:40 Intake & Output 06/20/19 06/21/19 06/21/19 18:59 06:59 18:59 Intake Total 1020 Balance 1020 Weight 60.101 kg Intake: Oral 1020 Other: Voiding Method Bedside Commode Urinal Diaper # Voids 1 3 # Bowel Movements 1 6 - Exam Constitutional: well developed, well nourished, NAD. HEENT: normocephalic. TMs clear. PERRLA. Oral Mucus membranes moist Neck: supple, no thyromegaly or JVD CV: Irregularly irregular, systolic murmur. Pulses 1+ Lungs: normal inspiratory effort, clear throughout Abd: soft, nontender, no organomegaly Lymph: no cervical or inguinal LAD Ext: LLE dressing clean dry and intact, tender Neuro: AAO x3 - Labs CBC & Chem 7: 06/21/19 08:21 06/19/19 19:11 Labs: Microbiology - Last 24 Hours (Table) 06/19/19 21:38 Blood Culture - Preliminary Blood No Growth after 24 hours Assessment and Plan Assessment: (1) Phlebitis Current Visit: Yes Status: Acute Code(s): I80.9 - PHLEBITIS AND THROMBOPHLEBITIS OF UNSPECIFIED SITE SNOMED Code(s): 50862237 (2) Left leg cellulitis Current Visit: Yes Status: Acute Code(s): L03.116 - CELLULITIS OF LEFT LOWER LIMB SNOMED Code(s): 614301339 (3) Superficial thrombosis of left lower extremity Current Visit: Yes Status: Acute Code(s): I82.812 - EMBOLISM AND THROMBOSIS OF SUPERFICIAL VEINS OF L LOW EXTREM SNOMED Code(s): 106807799 (4) Atrial fibrillation Current Visit: Yes Status: Acute Code(s): I48.91 - UNSPECIFIED ATRIAL FIBRILLATION SNOMED Code(s): 19680439 Plan: Continue current medication regime, monitoring and symptomatic treatment. Continue on Keflex, Silvadene for wound care as per ID. Labs pending. Daily PT INR. Agreeable to subacute rehab. Discharge planning in progress pending authorization. The impression and plan of care has been dictated as directed. : I performed a history and examination of this patient, discussed the same with the dictator. I agree with the dictator's note ,documented as a scribe. Any additional findings or plans will be noted.
[2019-06-21] MEDS: ENOXAPARIN 60 MG/0.6 ML SYRINGE SQ SCH (17:36)
[2019-06-21] MEDS ORDERED: WARFARIN 3 MG TAB PO ONE (18:00)
[2019-06-22] MEDS: CLINDAMYCIN 600 MG in DEXTROSE 5% IN WATER 50 ML IVPB SCH ×4 (01:56→08:13)
[2019-06-22] MEDS: DORZOLAMIDE HCL 2% DROPS 10 ML BTL BOTH EYES SCH ×2 (07:07→20:23)
[2019-06-22] MEDS: ENOXAPARIN 60 MG/0.6 ML SYRINGE SQ SCH ×2 (07:08→20:29)
[2019-06-22 08:44] LABS: Anisocytosis Slight; HCT 42.9 % (39.0-53.0); HGB 13.4 gm/dL (13.0-17.5); MCH 30.5 pg (25.0-35.0); MCHC 31.2 g/dL (31.0-37.0); MCV 97.7 fL (80.0-100.0); Macrocytosis Slight; Mean Platelet Volume 9.9; Platelet Count 132 k/uL (150-450); RBC 4.39 m/uL (4.30-5.90); RDW 18.3 % (11.5-15.5); WBC 12.8 k/uL (3.8-10.6)
[2019-06-22 08:54] LABS: African American GFR (CKD) >90 (>60 ml/min/1.73 sqM); Anion Gap 6 mmol/L; Blood Urea Nitrogen 13 mg/dL (9-20); Calcium 8.3 mg/dL (8.4-10.2); Carbon Dioxide 29 mmol/L (22-30); Chloride 100 mmol/L (98-107); Glucose 92 mg/dL (74-99); Potassium 3.8 mmol/L (3.5-5.1); Sodium 135 mmol/L (137-145)
[2019-06-22 09:23] LABS: INR 1.5 (<1.2); Prothrombin Time 15.2 sec (9.0-12.0)
[2019-06-22] MEDS ORDERED: Potassium Replacement Protocol 1 EACH MISC MISCELLANE PRN (09:26)
--- NOTE | 2019-06-22 09:29 | P.PN ---
Subjective Progress Note Date: 06/22/19 Juan Miguel Rushing is an 89 yo M with PMH significant for atrial fibrillation on coumadin, glaucoma, osteopenia, deconditioning. He was seen yesterday by home visiting PT and complained at that time of superficial nodular swelling and tenderness along his LLE. He was then recommended to present to the ED. He has a history of superficial phlebitis and has required antibiotic treatment for this in the past. He states the bumps on his legs enlarged and began hurting over the past two days. He denies any fevers, chills, chest pain, cough, or redness extending up his leg. He denies any open sores or drainage. Pt states he has remained compliant with his coumadin. He has no known history of vascular disease and is a nonsmoker. In the ED, vitals stable, WBC 16.7, venous ultrasound with superficial thrombosis of L saphenous vein. Superficial ultrasound of leg nodules showed them to be hypoechoic with minimal vascularity. 06/21/2019 Continues to do well with current treatment. Antibiotics adjusted, on Keflex with Silvadene for wound care as recommended per infectious disease. Afebrile, preliminary blood cultures negative. Reports Left lower extremity edema, tenderness improving. Labs pending. 06/22/2019 Lovenox in addition to Coumadin until INR therapeutic . INR 1.5. Maintained on IV cefazolin as per ID. Afebrile, T-max 99.6, WBC trending down, 12.8, preliminary blood cultures negative at 48 hours.Left leg tenderness significantly improved. Good diet intake with no nausea vomiting or diarrhea. No abdominal pain. Denies chest pain, palpitations or shortness of breath. Objective - Vital Signs Vital signs: Vital Signs Temp 98.4 F 06/22/19 04:39 Pulse 77 06/22/19 04:39 Resp 18 06/22/19 04:39 BP 135/69 06/22/19 04:39 Pulse Ox 99 06/22/19 04:39 Intake & Output 06/21/19 06/22/19 06/22/19 18:59 06:59 18:59 Intake Total 480 Output Total 250 Balance 230 Intake: Oral 480 Output: Urine 250 Other: Voiding Method Diaper Urinal Incontinent Diaper Incontinent # Voids 4 1 # Bowel Movements 2 1 - Exam Constitutional: Sitting up in bed, eating breakfast, NAD. HEENT: normocephalic. TMs clear. PERRLA. Oral Mucus membranes moist Neck: supple, no thyromegaly or JVD CV: Irregularly irregular, systolic murmur. Pulses 1+ Lungs: normal inspiratory effort, clear throughout Abd: soft, nontender, no organomegaly Lymph: no cervical or inguinal LAD Ext: LLE dressing clean dry and intact, less tender Neuro: AAO x3 Microbiology 06/19/19 21:38 Blood Blood Culture - Preliminary No Growth after 48 hours - Labs CBC & Chem 7: 06/22/19 08:29 06/22/19 08:29 Labs: Abnormal Lab Results - Last 24 Hours (Table) 06/21/19 06/21/19 06/22/19 Range/Units 08:21 08:21 08:29 WBC 14.2 H 12.8 H (3.8-10.6) k/uL MCV 100.5 H (80.0-100.0) fL RDW 19.3 H 18.3 H (11.5-15.5) % Plt Count 140 L 132 L (150-450) k/uL Neutrophils # (Manual) 8.66 H (1.3-7.7) k/uL Monocytes # (Manual) 4.40 H (0-1.0) k/uL PT 13.2 H (9.0-12.0) sec INR 1.3 H (<1.2) Sodium (137-145) mmol/L Creatinine (0.66-1.25) mg/dL Calcium (8.4-10.2) mg/dL 06/22/19 Range/Units 08:29 WBC (3.8-10.6) k/uL MCV (80.0-100.0) fL RDW (11.5-15.5) % Plt Count (150-450) k/uL Neutrophils # (Manual) (1.3-7.7) k/uL Monocytes # (Manual) (0-1.0) k/uL PT (9.0-12.0) sec INR (<1.2) Sodium 135 L (137-145) mmol/L Creatinine 0.54 L (0.66-1.25) mg/dL Calcium 8.3 L (8.4-10.2) mg/dL Microbiology - Last 24 Hours (Table) 07/30/19 21:38 Blood Culture - Preliminary Blood No Growth after 48 hours Assessment and Plan Assessment: (1) Phlebitis Current Visit: Yes Status: Acute Code(s): I80.9 - PHLEBITIS AND THROMBOPHLEBITIS OF UNSPECIFIED SITE SNOMED Code(s): 23303250 (2) Left leg cellulitis Current Visit: Yes Status: Acute Code(s): L03.116 - CELLULITIS OF LEFT LOWER LIMB SNOMED Code(s): 868405907 (3) Superficial thrombosis of left lower extremity Current Visit: Yes Status: Acute Code(s): I82.812 - EMBOLISM AND THROMBOSIS OF SUPERFICIAL VEINS OF L LOW EXTREM SNOMED Code(s): 847588576 (4) Atrial fibrillation Current Visit: Yes Status: Acute Code(s): I48.91 - UNSPECIFIED ATRIAL FIBRILLATION SNOMED Code(s): 78922693 Plan: Continue current medication regime, monitoring and symptomatic treatment. Verify with ID and convert antibiotic to oral- Keflex.Maintain Silvadene for wound care as per ID. Discharge planning in progress for subacute rehab tomorrow, pending authorization. The impression and plan of care has been dictated as directed. : I performed a history and examination of this patient, discussed the same with the dictator. I agree with the dictator's note ,documented as a scribe. Any additional findings or plans will be noted.
[2019-06-22 10:56] LABS: Eosinophils # (M) 0.13 k/uL (0-0.7); Lymphocytes # (M) 0.64 k/uL (1.0-4.8); Monocytes # (M) 4.35 k/uL (0-1.0); Neutrophils % (M) 61 %; Nucleated Red Blood Cells 0 /100 WBC (0-0); Total Cells Counted 200
[2019-06-22 12:36] VITALS: RESP 16
--- NOTE | 2019-06-22 21:56 | P.PN ---
Subjective Progress Note Date: 06/22/19 Pleasant 89-year-old gentleman who has a history of dementia who resides in assisted living facility has many medical troubles that include atrial fibrillation chronically anticoagulated with Coumadin, progressive weakness and difficulties with glaucoma. 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 The patient relates that he has developed the onset of significant pain and swelling to the left leg in the medial aspect of the calf. Is known history of varicose veins and does not recall any specific trauma but has noticed the onset of swelling erythema and distinct tenderness in the left leg. Despite some outpatient treatment he did not improve and consequently was brought in hospital for treatment of the significant cellulitis of this region. The patient does not believe he has a history of deep venous thrombosis but does have the exte nsive varicose veins. He does not believe he has any surgery on his veins. He denies significant fever chills or rigors. Denies other acute symptoms at this time. 06/22/2019 patient feels better, but still tenderness, no fever or chills. Objective - Vital Signs Vital signs: Vital Signs Temp 98.2 F 06/22/19 21:00 Pulse 79 06/22/19 21:00 Resp 16 06/22/19 21:00 BP 158/63 06/22/19 21:00 Pulse Ox 95 06/22/19 21:00 Intake & Output 06/22/19 06/22/19 06/23/19 06:59 18:59 06:59 Output Total 700 200 Balance -700 -200 Output: Urine 700 200 Other: Voiding Method Diaper Urinal Incontinent Diaper Incontinent # Voids 1 # Bowel Movements 1 - Exam HEENT: Anicteric conjunctiva are pink and moist nasal mucosa grossly intact without significant lesions, there is no thrush. Neck: The neck is supple without significant lymphadenopathy or thyromegaly. Lungs: Good bilateral air entry without significant crackles or wheezing. There is no significant bronchial sounds. There is no egophony or dullness. Heart: Regular rate and rhythm with an audible S1-S2, no S3 no S4. There is no significant murmur click or rub, PMI was nondisplaced. Abdomen: Positive bowel sounds soft and nontender without palpable masses or organomegaly. There was no guarding or rebound.The right lower amin shows evidence of some varicosities to lower extremity veins and he has the distinct discoloration to the lower extremity skin hemosiderin-like in nature. Left lower extremity shows similar findings with extensive varicose veins and skin discoloration however on the medial aspect of the inner aspect of the calf is evidence of the significant tenderness and erythema. There is evidence of tenderness and firmness to the obvious varicose veins that are present. There is no distinct ulceration. The erythema does not ascend above the knee. There is no inguinal lymphadenopathy or no other abnormal lymph nodes being seen. Extremities: The upper extremities have excellent pulses they are symmetric, no significant petechiae or telangiectasia. No splinter hemorrhages were noted. Neuro: Awake alert oriented to person however did not know place or time. He however could follow simple commands without difficulties. - Labs CBC & Chem 7: 06/22/19 08:29 06/22/19 08:29 Labs: Abnormal Lab Results - Last 24 Hours (Table) 06/22/19 06/22/19 06/22/19 Range/Units 08:14 08: 08:29 WBC 12.8 H (3.8-10.6) k/uL RDW 18.3 H (11.5-15.5) % Plt Count 132 L (150-450) k/uL Neutrophils # (Manual) 7.81 H (1.3-7.7) k/uL Lymphocytes # (Manual) 0.64 L (1.0-4.8) k/uL Monocytes # (Manual) 4.35 H (0-1.0) k/uL PT 15.2 H (9.0-12.0) sec INR 1.5 H (<1.2) Sodium 135 L (137-145) mmol/L Creatinine 0.54 L (0.66-1.25) mg/dL Calcium 8.3 L (8.4-10.2) mg/dL Microbiology - Last 24 Hours (Table) 06/19/19 21:38 Blood Culture - Preliminary Blood No Growth after 48 hours Laboratory Results WBC 12.8 k/uL (3.8-10.6) H 06/22/19 08:29 RBC 4.39 m/uL (4.30-5.90) 06/22/19 08:29 Hgb 13.4 gm/dL (13.0-17.5) 06/22/19 08:29 Hct 42.9 % (39.0-53.0) 06/22/19 08:29 MCV 97.7 fL (80.0-100.0) 06/22/19 08:29 MCH 30.5 pg (25.0-35.0) 06/22/19 08:29 MCHC 31.2 g/dL (31.0-37.0) 06/22/19 08:29 RDW 18.3 % (11.5-15.5) H 06/22/19 08:29 Plt Count 132 k/uL (150-450) L 06/22/19 08:29 Neutrophils % (Manual) 61 % 06/22/19 08:29 Lymphocytes % (Manual) 5 % 06/22/19 08: Monocytes % (Manual) 34 % 06/22/19 08:29 Eosinophils % (Manual) 1 % 06/22/19 08:29 Neutrophils # (Manual) 7.81 k/uL (1.3-7.7) H 06/22/19 08:29 Lymphocytes # (Manual) 0.64 k/uL (1.0-4.8) L 06/22/19 08:29 Monocytes # (Manual) 4.35 k/uL (0-1.0) H 06/22/19 08:29 Eosinophils # (Manual) 0.13 k/uL (0-0.7) 06/22/19 08:29 Nucleated RBCs 0 /100 WBC (0-0) 06/22/19 08:29 Manual Slide Review Performed 06/22/19 08:29 Hypochromasia Slight 06/21/19 08:21 Poikilocytosis (manual Present 06/21/19 08:21 Anisocytosis Slight 06/22/19 08:29 Macrocytosis Slight 06/22/19 08:29 PT 15.2 sec (9.0-12.0) H 06/22/19 08:14 INR 1.5 (<1.2) H 06/22/19 08:14 APTT 23.3 sec (22.0-30.0) 06/20/19 01:42 Sodium 135 mmol/L (137-145) L 06/22/19 08:29 Potassium 3.8 mmol/L (3.5-5.1) 06/22/19 08:29 Chloride 100 mmol/L (98-107) 06/22/19 08:29 Carbon Dioxide 29 mmol/L (22-30) 06/22/19 08:29 Anion Gap 6 mmol/L 06/22/19 08:29 BUN 13 mg/dL (9-20) 06/22/19 08:29 Creatinine 0.54 mg/dL (0.66-1.25) L 06/22/19 08:29 Est GFR (CKD-EPI)AfAm >90 (>60 ml/min/1.73 sqM) 06/22/19 08:29 Est GFR (CKD-EPI)NonAf >90 (>60 ml/min/1.73 sqM) 06/22/19 08:29 Glucose 92 mg/dL (74-99) 06/22/19 08:29 Plasma Lactic Acid Daron 1.3 mmol/L (0.7-2.0) 06/19/19 19:11 Calcium 8.3 mg/dL (8.4-10.2) L 06/22/19 08:29 Total Bilirubin 0.7 mg/dL (0.2-1.3) 06/19/19 19:11 AST 32 U/L (17-59) 06/19/19 19:11 ALT 24 U/L (21-72) 06/19/19 19:11 Alkaline Phosphatase 97 U/L (38-126) 06/19/19 19:11 Total Protein 6.7 g/dL (6.3-8.2) 06/19/19 19:11 Albumin 3.4 g/dL (3.5-5.0) L 06/19/19 19:11 Microbiology 06/19/19 21:38 Blood Blood Culture - Preliminary No Growth after 48 hours Assessment and Plan (1) Left leg cellulitis Narrative/Plan: Pleasant 89-year-old male who presents to hospital with increasing pain and swelling and erythema to the medial aspect of the left calf. He has no trauma or any other acute changes he can recall. He overdoes evidence of extensive varicose veins relates is due to his time in the [place] in his work at [employer]. There is evidence by ultrasound and physical exam of thrombosis of the superficial vein in that region on the calf. There is associated erythema and tenderness. He does not have an extensive ascending lymphangitis at this time. There is no inguinal lymphadenopathy. Antibiotic therapy descalated to Ancef at this time for the current difficulty. Local wound care with Silvadene and gentle wrap will be applied. He is ready anticoagulated with Coumadin is being monitored by the primary service. Elevation of the limb while he can tolerate it is helpful. 06/22/2109 feels better overall but still has some pain without fever. Will continue ancef till the time of transfer to rehab and then change to oral keflex 500mg po tid for 10 days at transfer. Current Visit: Yes Status: Acute Code(s): L03.116 - CELLULITIS OF LEFT LOWER LIMB SNOMED Code(s): 812450864 (2) Superficial thrombosis of left lower extremity Current Visit: Yes Status: Acute Code(s): I82.812 - EMBOLISM AND THROMBOSIS OF SUPERFICIAL VEINS OF L LOW EXTREM SNOMED Code(s): 621817813 (3) Dementia Current Visit: Yes Status: Acute Code(s): F03.90 - UNSPECIFIED DEMENTIA WITHOUT BEHAVIORAL DISTURBANCE SNOMED Code(s): 94453529
[2019-06-23 04:43] VITALS: BP 145/70; PULSE 72; TEMP 98.3
[2019-06-23 06:47] LABS: INR 1.4 (<1.2); Prothrombin Time 14.1 sec (9.0-12.0)
--- NOTE | 2019-06-23 08:08 | P.DS ---
Providers Date of admission: 06/20/19 11:19 Expected date of discharge: 06/23/19 Attending physician: Vishnu Castro MD Consults: 06/20/19 09:05 Consult Physician Routine Consulting Provider: Wayne Bhat Consult Reason/Comments: cellulitis BLE Do you want consulting provider notified?: Yes Primary care physician: Corrina Castro - Discharge Diagnosis(es) (1) Phlebitis Current Visit: Yes Status: Acute (2) Left leg cellulitis Current Visit: Yes Status: Acute (3) Superficial thrombosis of left lower extremity Current Visit: Yes Status: Acute (4) Atrial fibrillation Current Visit: Yes Status: Acute Hospital Course: Juan Miguel Rushing is an 89 yo M with PMH significant for atrial fibrillation on coumadin, glaucoma, osteopenia, deconditioning. He was seen yesterday by home visiting PT and complained at that time of superficial nodular swelling and tenderness along his LLE. He was then recommended to present to the ED. He has a history of superficial phlebitis and has required antibiotic treatment for this in the past. He states the bumps on his legs enlarged and began hurting over the past two days. He denies any fevers, chills, chest pain, cough, or redness extending up his leg. He denies any open sores or drainage. Pt states he has remained compliant with his coumadin. He has no known history of vascular disease and is a nonsmoker. In the ED, vitals stable, WBC 16.7, venous ultrasound with superficial thrombosis of L saphenous vein. Superficial ultrasound of leg nodules showed them to be hypoechoic with minimal vascularity. 06/21/2019 Continues to do well with current treatment. Antibiotics adjusted, on Keflex with Silvadene for wound care as recommended per infectious disease. Afebrile, preliminary blood cultures negative. Reports Left lower extremity edema, tenderness improving. Labs pending. 06/22/2019 Lovenox in addition to Coumadin until INR therapeutic. INR 1.5. Maintained on IV cefazolin as per ID. Afebrile, T-max 99.6, WBC trending down, 12.8, preliminary blood cultures negative at 48 hours.Left leg tenderness significantly improved. Good diet intake with no nausea vomiting or diarrhea. No abdominal pain. Denies chest pain, palpitations or shortness of breath. 06/23. Leg cellulitis continues to improve, diminishing erythema and tenderness. Blood cultures remain negative. No fever, chills, chest pain or shortness of breath. INR remains subtherapeutic at 1.4. He is stable for discharge to ECF today. He will complete a 7 day course of oral keflex on discharge. Pt is discharged with lovenox bridging and will resume home coumadin dosing. He is recommended to have his INR checked on Tuesday and can discontinue lovenox when INR between 2-3. Discharge exam: Constitutional: Sitting up in bed, eating breakfast, NAD. HEENT: normocephalic. TMs clear. PERRLA. Oral Mucus membranes moist Neck: supple, no thyromegaly or JVD CV: Irregularly irregular, systolic murmur. Pulses 1+ Lungs: normal inspiratory effort, clear throughout Abd: soft, nontender, no organomegaly Lymph: no cervical or inguinal LAD Ext: LLE dressing clean dry and intact, less tender Neuro: AAO x3 Patient Condition at Discharge: Serious Plan - Discharge Summary Discharge Rx Participant: No New Discharge Prescriptions: New Cephalexin [Keflex] 500 mg PO Q8HR #30 cap Enoxaparin [Lovenox] 60 mg SQ Q12HR #14 syringe Continue predniSONE 5 mg PO DAILY Netarsudil Mesylate [Rhopressa] 1 drop LEFT EYE HS Dorzolamide 2% [Trusopt 2%] 1 drops BOTH EYES BID Warfarin Sodium 5 mg PO DAILY Discontinued Amoxicillin/Potassium Clav [Augmentin 875-125 Tablet] 1 tab PO Q12HR Discharge Medication List predniSONE 5 mg PO DAILY 11/13/17 [History] Dorzolamide 2% [Trusopt 2%] 1 drops BOTH EYES BID 06/19/19 [History] Netarsudil Mesylate [Rhopressa] 1 drop LEFT EYE HS 06/19/19 [History] Warfarin Sodium 5 mg PO DAILY 06/19/19 [History] Cephalexin [Keflex] 500 mg PO Q8HR #30 cap 06/22/19 [Rx] Enoxaparin [Lovenox] 60 mg SQ Q12HR #14 syringe 06/23/19 [Rx] Follow up Appointment(s)/Referral(s): Corrina Castro DO [Primary Care Provider] - 1-2 days [facility], [NON-STAFF] - Discharge Disposition: TRANSFER TO SNF/ECF
[2019-06-23] MEDS: DORZOLAMIDE HCL 2% DROPS 10 ML BTL BOTH EYES SCH (08:17)
[2019-06-23] MEDS: ENOXAPARIN 60 MG/0.6 ML SYRINGE SQ SCH (08:17)
[2019-06-23] MEDS ORDERED: WARFARIN 7.5 MG TAB PO ONE (18:00)
== END 2019-06-23 10:40 | DRG 300 ==
LOC: EC 17:32 → 4MS4W 06-20 01:31 → OBSVTOIN 06-20 11:19 → 3NMEDONC 06-21 14:38
PROVIDERS: ADMIT Family Medicine; ATTEND Family Medicine
DX: I82.812 Embolism and thrombosis of superficial veins of left lower extremity (principal); L03.116 Cellulitis of left lower limb; I80.02 Phlebitis and thrombophlebitis of superficial vessels of left lower extremity; H40.9 Unspecified glaucoma; F03.90 Unspecified dementia, unspecified severity, without behavioral disturbance, psychotic disturbance, mood disturbance, and anxiety; I48.91 Unspecified atrial fibrillation; M85.80 Other specified disorders of bone density and structure, unspecified site; Z79.01 Long term (current) use of anticoagulants; Z86.72 Personal history of thrombophlebitis; Z88.8 Allergy status to other drugs, medicaments and biological substances; Z90.89 Acquired absence of other organs; Z98.890 Other specified postprocedural states
CPT/HCPCS: 36415; 80048; 80053; 83605; 85025; 85610; 85730; 87040; 96365; 96372; 99285